=== PATIENT | female | born 1965 | race American Indian/Alaskan Native ===

== ENCOUNTER 2017-12-19 11:35 | Emergency (ER) | payer OTHER, BC ==
[2017-12-19 11:35] VITALS: BMI 32.1
[2017-12-19 11:59] VITALS: BP 123/82; PULSE 101; RESP 18; TEMP 98.3; O2SAT 99
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
== END 2017-12-19 12:51 | disposition home or self-care (01) ==
LOC: C.ER 11:35
DX: S49.91XD Unspecified injury of right shoulder and upper arm, subsequent encounter (principal); V89.2XXD Person injured in unspecified motor-vehicle accident, traffic, subsequent encounter